=== PATIENT | male | born 1955 | race Caucasian/White ===

== ENCOUNTER 2017-04-13 14:11 | Emergency (ER) | payer OTHER ==
[~2017-04-13] VITALS: Ht 177.8 cm; Wt 120.2 kg
[2017-04-13 14:16] VITALS: BP 142/90
--- NOTE | 2017-04-13 14:37 | RAD ---
Indication injury. Pain. AP oblique and lateral views of the left ankle were obtained. There is soft tissue swelling particularly over the lateral malleolus. No acute bony finding is seen.
[2017-04-13] MEDS ORDERED: NAPROXEN 500 MG TABLET PO STA (14:59)
[2017-04-13] MEDS ORDERED: HYDR-971 PO (15:09)
--- NOTE | 2017-04-13 15:09 | PHYS DOC ---
Past Medical History Past Medical History: No Pertinent History Past Surgical History: Cholecystectomy Alcohol Use: None Drug Use: None Adult General Chief Complaint Chief Complaint: ANKLE PROBLEM HPI HPI Patient is a 61 year old male who presents today complaining of moderate left lateral ankle pain that began today after he fell a minutes prior to coming to the ED. Patient states he heard a snap sound from the ankle. Review of Systems Review of Systems Constitutional: Denies fever or chills [] Eyes: Denies change in visual acuity, redness, or eye pain [] Musculoskeletal: Left ankle pain Integument: Denies rash or skin lesions [] Neurologic: Denies headache, focal weakness or sensory changes [] Endocrine: Denies polyuria or polydipsia [] Current Medications Current Medications Current Medications Medications (Trade) Dose Ordered Sig/Whitney Start Time Stop Time Status Last Admin Dose Admin Acetaminophen/ Hydrocodone Bitart (Lortab 5/325) 2 tab 1X ONCE 04/13/17 15:30 04/13/17 15:30 DC 04/13/17 15:17 2 TAB Naproxen (Naprosyn) 500 mg 1X STAT 04/13/17 14:59 04/13/17 15:14 DC 04/13/17 15:17 500 MG Allergies Allergies Allergies Coded Allergies Type Severity Reaction Last Updated Verified No Known Drug Allergies 04/13/17 No Physical Exam Physical Exam Constitutional: Well developed, well nourished, no acute distress, non-toxic appearance. [] HENT: Normocephalic, atraumatic, bilateral external ears normal, oropharynx moist, no oral exudates, nose normal. [] Skin: Warm, dry, no erythema, no rash. [] Back: No tenderness, no CVA tenderness. [] Extremities: Left ankle with no obvious deformity. Moderate soft tissue swelling noted on the lateral aspect of the ankle. Tenderness on palpation of the lateral aspect of the left ankle. Slightly limited range of motion to the left ankle due to pain. Full range of motion to the left toes. +2 left pedal pulse. Cap refill less than 2 seconds the left lower extremity. Sensation intact to the left lower extremity. Neurologic: Alert and oriented X 3, normal motor function, normal sensory function, no focal deficits noted. [] Psychologic: Affect normal, judgement normal, mood normal. [] Current Patient Data Vital Signs Vital Signs Date Time Temp Pulse Resp B/P (MAP) Pulse Ox O2 Delivery O2 Flow Rate FiO2 04/13/17 15:17 Room Air 04/13/17 14:16 97.6 87 16 92 97.6 EKG EKG [] Radiology/Procedures Radiology/Procedures [] Course & Med Decision Making Course & Med Decision Making Pertinent Labs and Imaging studies reviewed. (See chart for details) Patient is in the ED with left ankle pain after falling today. Left ankle x- rays interpreted by radiologist were negative for any acute findings.This is probably an ankle sprain. Patient was provided instructions to follow-up with orthopedic doctor in one week if pain continues. Ice elevation encouraged. Aircast offered, patient refused because it was more painful offered nai wrap. Dragon Disclaimer Dragon Disclaimer This electronic medical record was generated, in whole or in part, using a voice recognition dictation system. Departure Departure Impression: Primary Impression: Left ankle sprain Additional Impression: Fall from standing Disposition: 01 HOME, SELF-CARE Condition: STABLE Referrals: NON,STAFF (PCP) ALETHA BEE II, MD Follow-up in one week Patient Instructions: Ankle Sprain Additional Instructions: You were seen for left ankle sprain. Ice and elevate the extremity. Follow-up with the provided orthopedic doctor in 1-2 weeks if pain continues. Weightbearing on the left lower extremity as tolerated. Scripts Hydrocodone/Apap 5-325 (NORCO 5-325 TABLET) 1 Each Tablet 1-2 TAB PO Q4-6HRS Y for PAIN, #12 TAB Prov: LOUIS BERG APRN 04/13/17 Problem Qualifiers Primary Impression: Left ankle sprain Encounter type: initial encounter Involved ligament of ankle: unspecified ligament Qualified Codes: S93.402A - Sprain of unspecified ligament of left ankle, initial encounter Additional Impression: Fall from standing Encounter type: initial encounter Qualified Codes: W19.XXXA - Unspecified fall, initial encounter LOUIS BERG APRN Apr 13, 2017 15:09
[2017-04-13] MEDS ORDERED: HYDROcodone/APAP 5/325MG 1 TAB TABLET PO ONE (15:30)
== END 2017-04-13 15:20 | disposition home or self-care (01) ==
LOC: ER 14:11
DX: S93.402A Sprain of unspecified ligament of left ankle, initial encounter (principal); Z90.49 Acquired absence of other specified parts of digestive tract; W18.39XA Other fall on same level, initial encounter; Y93.89 Activity, other specified; Y92.89 Other specified places as the place of occurrence of the external cause; Y99.8 Other external cause status
CPT/HCPCS: 29515; 73610; 99284-25